=== PATIENT | male | born 1980 | race Caucasian/White ===

== ENCOUNTER 2016-11-29 09:14 | Day surgery (SDC) | payer MEDICARE ==
[~2016-11-29] VITALS: Ht 180.3 cm; Wt 172.7 kg
[~2016-11-29 09:14] MED LIST: BUSP15 PO; FENO145T20 PO; LEVO120C PO; LEVO1CAP PO; METF500T4 PO; TRAZ150 PO
[2016-11-29] MEDS ORDERED: CeFAZolin 1 GM/DEXTROSE 50 ML IV ONE ×2 (09:27→11:30)
[2016-11-29] MEDS ORDERED: SODIUM CHLORIDE 0.9% 1,000 ML IV ONE ×3 (09:27→16:28)
[2016-11-29 10:15] LABS: BASOPHILS # (AUTO) 0.06 K/uL (0.00-0.20); BASOPHILS % (AUTO) 0.7 % (0.0-2.0); EOSINOPHILS % (AUTO) 3.69 % (1.0-6.0); HEMATOCRIT 43.5 % (41-53); HEMOGLOBIN 14.4 g/dL (13.5-17.5); LYMPHOCYTES # (AUTO) 2.9 K/uL (1.0-4.8); MEAN CORPUSCULAR HEMOGLOBIN 28.4 pg (26.0-34.0); MEAN CORPUSCULAR HGB CONC 33.2 G/dL (31.0-37.0); MEAN CORPUSCULAR VOLUME 86 fL (80-100); MONOCYTES # (AUTO) 0.5 K/uL (0.1-1.0); MONOCYTES % (AUTO) 6.4 % (2.0-9.0); NEUTROPHILS # (AUTO) 4.3 K/uL (1.8-7.7); NEUTROPHILS % (AUTO) 53.2 % (40.0-70.0); PLATELET COUNT (AUTO) 308 K/uL (150-450); RED BLOOD CELL COUNT(AUTO) 5.08 MIL/uL (4.50-5.90); RED CELL DISTRIBUTION WIDTH 13.9 % (11.5-14.5)
[2016-11-29 10:37] LABS: ALANINE AMINOTRANSFERASE 85 U/L (12-78); ALBUMIN 4.3 g/dL (3.4-5.0); ANION GAP 13 mmol/L (8-16); ASPARTATE AMINOTRANSFERASE 38 U/L (15-37); BILIRUBIN,TOTAL 0.4 mg/dL (0.1-1.0); CALCIUM, TOTAL 8.8 mg/dL (8.8-10.5); CARBON DIOXIDE 23 mmol/L (22-29); CHLORIDE 101 mmol/L (98-107); CREATININE 1.04 mg/dL (0.60-1.30); GLOMERULAR FILTR. RATE CALC > 60 mL/min (>60); POTASSIUM 3.8 mmol/L (3.5-5.1); SODIUM SERUM 137 mmol/L (136-145); TOTAL PROTEIN, SERUM 7.9 g/dL (6.4-8.2); UREA NITROGEN, BLOOD 9 mg/dL (7-18)
[2016-11-29 10:53] LABS: PROTHROMBIN TIME 10.3 SEC (9.4-11.6)
[2016-11-29] MEDS ORDERED: LORazepam 2 MG/ML VIAL IVP PRN (11:30)
[2016-11-29] MEDS ORDERED: LORazepam 2 MG/ML VIAL ONE (11:50)
[2016-11-29] MEDS ORDERED: FentaNYL CITRATE-PF 100 MCG/2 ML VIAL IVP ONE (12:00)
[2016-11-29] MEDS ORDERED: MIDAZOLAM HCL 2 MG/2 ML VIAL IVP ONE (12:00)
[2016-11-29] MEDS ORDERED: KETAMINE HCL 50 MG/ML 10 ML VIAL IVP ONE (12:00)
[2016-11-29] MEDS ORDERED: PROPOFOL 1% ISO-OSM 1000 MG/100 ML BOTTLE IV ONE (12:00)
[2016-11-29] MEDS ORDERED: IOHEXOL 300 MG/ML 150 ML VIAL ONE (12:49)
[2016-11-29] MEDS ORDERED: SODIUM BICARBONATE 50 MEQ/50 ML VIAL ONE (12:49)
[2016-11-29] MEDS ORDERED: LIDOCAINE HCL/PF 1% 30 ML VIAL ONE (12:49)
[2016-11-29] MEDS ORDERED: HEPARIN SODIUM 1000 UNITS/NS 500 ML ONE (12:50)
[2016-11-29] MEDS ORDERED: IODIXANOL 320 MG/ML 100 ML VIAL ONE (12:54)
[2016-11-29] MEDS ORDERED: HEPARIN SODIUM 1000 UNITS/NS 500 ML IARTER ONE (13:11)
[2016-11-29] MEDS ORDERED: LIDOCAINE 1% 30 ML/SOD BICARB 8.4% 4 ML SQ ONE (13:11)
[2016-11-29] MEDS ORDERED: HEPARIN SODIUM 1000 UNITS/NS 1,000 ML IARTER ONE (13:36)
[2016-11-29] MEDS ORDERED: IODIXANOL 320 MG/ML 100 ML VIAL IARTER ONE (13:40)
[2016-11-29] MEDS ORDERED: IODIXANOL 320 MG/ML 50 ML VIAL IARTER ONE (13:40)
[2016-11-29] MEDS ORDERED: IODIXANOL 320 MG/ML 50 ML VIAL ONE (14:09)
[2016-11-29] MEDS ORDERED: IOHEXOL 300 MG/ML 50 ML VIAL ONE ×2 (14:32→15:04)
[2016-11-29] MEDS ORDERED: IOHEXOL 240 MG/ML 50 ML VIAL IARTER ONE (14:36)
[2016-11-29] MEDS ORDERED: IOHEXOL 300 MG/ML 50 ML VIAL IARTER ONE (14:46)
[2016-11-29] MEDS ORDERED: SODIUM CHLORIDE 0.9% 1,000 ML IV SCH (15:28)
[2016-11-29] MEDS ORDERED: TraMADol HCL 50 MG TABLET PO ONE (15:30)
[2016-11-29] MEDS ORDERED: HYDROmorphone 2 MG/ML SYRINGE IVP PRN ×2 (15:30→16:00)
[2016-11-29] MEDS ORDERED: HYDROmorphone HCL 2 MG TABLET PO ONE (15:30)
[2016-11-29] MEDS ORDERED: OxyCODONE HCL/ACETAMINOPHEN 5-325 MG TABLET PO PRN ×2 (15:30)
[2016-11-29] MEDS ORDERED: ONDANSETRON HCL 4 MG/2 ML VIAL ONE ×2 (15:40→17:27)
[2016-11-29] MEDS ORDERED: DEXAMETHASONE SOD PHOS 4 MG/ML VIAL ONE ×2 (15:49)
[2016-11-29] MEDS ORDERED: PROMETHAZINE HCL 25 MG/ML VIAL ONE (15:56)
[2016-11-29] MEDS ORDERED: METOCLOPRAMIDE HCL 5 MG/ML 2 ML VIAL IVP PRN (16:00)
[2016-11-29] MEDS ORDERED: MEPERIDINE-PF 25 MG/ML SYRINGE IVP PRN (16:00)
[2016-11-29] MEDS ORDERED: ONDANSETRON HCL 4 MG/2 ML VIAL IVP PRN (16:00)
[2016-11-29] MEDS ORDERED: METOCLOPRAMIDE HCL 5 MG/ML 2 ML VIAL IVP ONE (16:00)
[2016-11-29] MEDS ORDERED: FentaNYL CITRATE-PF 100 MCG/2 ML VIAL IVP PRN (16:00)
[2016-11-29] MEDS ORDERED: DEXAMETHASONE SOD PHOS 4 MG/ML VIAL IM ONE (16:00)
[2016-11-29] MEDS ORDERED: PROMETHAZINE HCL 25 MG/ML VIAL IM ONE (16:00)
[2016-11-29] MEDS ORDERED: DEXAMETHASONE SOD PHOS 4 MG/ML VIAL IVP ONE (16:30)
[2016-11-29] MEDS ORDERED: MAGNESIUM SULFATE 2 GM, MVI, ADULT NO.1 WITH VIT K 10 ML, THIAMINE HCL 100 MG, FOLIC AC... IV ONE ×5 (16:45)
[2016-11-29] MEDS ORDERED: METOCLOPRAMIDE HCL 5 MG/ML 2 ML VIAL ONE (16:57)
[2016-11-29] MEDS ORDERED: HYDROmorphone 2 MG/ML SYRINGE ONE ×2 (17:03→17:44)
[2016-11-29] MEDS ORDERED: FentaNYL CITRATE-PF 100 MCG/2 ML VIAL ONE (17:07)
[2016-11-29] MEDS ORDERED: PROMETHAZINE HCL 50 MG/ML VIAL IM ONE (17:45)
[2016-11-29] MEDS ORDERED: OxyCODONE HCL/ACETAMINOPHEN 5-325 MG TABLET ONE (19:50)
[2016-11-29] MEDS ORDERED: OXYGEN THERAPY IH SCH (20:00)
== END 2016-11-29 20:30 | disposition home or self-care (01) ==
LOC: SDS 09:14
PROVIDERS: ATTEND Radiology Diagnostic Radiology
DX: K25.4 Chronic or unspecified gastric ulcer with hemorrhage (principal); I10 Essential (primary) hypertension; E78.5 Hyperlipidemia, unspecified; E03.9 Hypothyroidism, unspecified; F19.21 Other psychoactive substance dependence, in remission; F10.21 Alcohol dependence, in remission; E66.01 Morbid (severe) obesity due to excess calories; Z68.43 Body mass index [BMI] 50.0-59.9, adult; G47.33 Obstructive sleep apnea (adult) (pediatric); Z87.891 Personal history of nicotine dependence; Z90.49 Acquired absence of other specified parts of digestive tract; Z87.442 Personal history of urinary calculi
CPT/HCPCS: 36246; 36415; 37244; 75726; 75774; 80053; 85025; 85610; 85730; C1769; C1892; J0690; J1100; J1170; J1644; J2060; J2250; J2405; J2550 ×2; J2704; J2765; J3010; J3411; J3475; J3490 ×5; J7030; Q9967 ×3; 36245; 76937; 99152; 99153